=== PATIENT | female | born 1985 | race Caucasian/White ===

== ENCOUNTER 2018-07-10 19:28 | Emergency (ER) | payer OTHER ==
[2018-07-10 19:42] VITALS: TEMP 97.9; BMI 22.4
--- NOTE | 2018-07-10 19:45 | PDOC ---
History of Present Illness - General Chief Complaint: Chest Pain Stated Complaint: CHEST PAIN Time Seen by Provider: 07/10/18 19:34 - History of Present Illness Initial Comments: 32 year old female with PMH of depression, PTSD, and recent social stressors presenting with chest pain, paresthesias, and sob for the past 2 days. States that she woke up yesterday without issue and later in the morning noted central chest pain/ tightness that is worse with breathing and causes difficulty with deep inspiration and exertion. She went to [facility] yesterday and they performed a cxr, troponin, and d-dimer that were all WNL. Patient presenting to our ED because her symptoms have not improved, she's developed paresthesias in the setting of increased respiratory rate, and she would like to determine the source of her pain. Denies any fevers, chills, nausea, vomiting , diarrhea, constipation, headache, visual symptoms. She does take oral OCPS but denies history of blood clots, autoimmune/ connective tissue syndromes, or recent travel/ immobility. 07/10/18 21:29 09/ Past History - Past Medical History Allergies/Adverse Reactions: Allergies Allergy/AdvReac Type Severity Reaction Status Date / Time No Known Allergies Allergy Unverified 07/10/18 20:12 Home Medications: Ambulatory Orders Duloxetine HCl [Cymbalta] 60 mg PO DAILY 07/10/18 Gabapentin Enacarbil [Horizant] 600 mg PO HS 07/10/18 Lisdexamfetamine Dimesylate [Vyvanse] 30 mg PO DAILY 07/10/18 Norgestrel-Ethinyl Estradiol [Ogestrel] 1 each PO DAILY 07/10/18 Pregabalin [Lyrica -] 200 mg PO HS 07/10/18 Sumatriptan Succinate [Imitrex] 25 mg PO PRN PRN 07/10/18 - Suicide/Smoking/Psychosocial Hx Smoking History: Never smoked Have you smoked in the past 12 months: No Information on smoking cessation initiated: No Hx Alcohol Use: No Drug/Substance Use Hx: No Review of Systems - Review of Systems Constitutional: No: Chills, Diaphoresis, Fever, Loss of Appetite HEENTM: No: Eye Pain, Blurred Vision, Tearing, Nose Congestion Respiratory: Yes: Shortness of Breath, SOB with Exertion. No: Cough, Wheezing, Productive cough Cardiac (ROS): Yes: Chest Pain. No: Irregular Heart Rate, Lightheadedness, Palpitations, Syncope ABD/GI: No: Nausea, Vomiting : No: Dysuria, Discharge, Frequency Musculoskeletal: No: Back Pain, Joint Pain, Joint Swelling, Joint Stiffness Neurological: Yes: Numbness, Tingling. No: Headache, Paresthesia, Seizure, Weakness, Ataxia, Dizziness Psychiatric: Yes: Depression, Frequent Crying, Stressors. No: Anxiety Endocrine: No: Increased Hunger, Increased Thirst Hematologic/Lymphatic: No: Anemia, Blood Clots, Easy Bleeding *Physical Exam - Vital Signs Last Vital Signs Temp Pulse Resp BP Pulse Ox 97.9 F 99 H 22 H 137/100 100 07/10/18 19:36 07/10/18 19:36 07/10/18 19:36 07/10/18 19:36 07/10/18 19:36 - Physical Exam General Appearance: Yes: Nourished, Appropriately Dressed, Apparent Distress, Mild Distress HEENT: positive: EOMI, NAHID, Normal ENT Inspection, Normal Voice Neck: positive: Trachea midline, Normal Thyroid, Supple. negative: Tender, Rigid Respiratory/Chest: positive: Chest Tender (TTP over sternum), Lungs Clear, Normal Breath Sounds. negative: Respiratory Distress, Accessory Muscle Use Cardiovascular: positive: Regular Rhythm, Regular Rate Gastrointestinal/Abdominal: positive: Normal Bowel Sounds, Flat, Soft. negative : Tender Rectal Exam: positive: deferred Lymphatic: negative: Adenopathy, Tenderness Musculoskeletal: positive: Normal Inspection. negative: Decreased Range of Motion Extremity: positive: Normal Capillary Refill, Normal Inspection, Normal Range of Motion. negative: Tender, Cyanosis, Pedal Edema, Swelling, Calf Tenderness, Erythema Integumentary: positive: Normal Color, Dry, Warm Neurologic: positive: slipper maker II-XII NML intact, Fully Oriented, Alert, Normal Response, Motor Strength 5/5. negative: Normal Mood/Affect (tearful) ED Treatment Course - LABORATORY CBC & Chemistry Diagram: 07/10/18 20:26 07/10/18 20:26 Medical Decision Making - Medical Decision Making 32 year old female with PMH of depression currently experiencing interrelationship stresses presenting with chest tightness and SOB for the past two days. All workup at [facility] and here are negative including d-dimer and troponin / ekg x 2. EKG here demonstrates rate 88, MD interval 120, QRS 88, QTc 442, no signs of QT prolongation, brugada, WPW, or ST changes. Pain improved after Toradol 15 IV and Ativan 0.4 IV. Will DC with 2 Xanax and psychiatrist follow up instructions and return precautions. 07/10/18 21:42 *DC/Admit/Observation/Transfer Diagnosis at time of Disposition: Shortness of breath Chest pain Qualifiers: Chest pain type: unspecified Qualified Code(s): R07.9 - Chest pain, unspecified - Discharge Dispostion Disposition: HOME Condition at time of disposition: Improved Decision to Admit order: No - Referrals Referrals: [facility] – [place], [place] [facility] [place] [Provider Group] - Patient Instructions Printed Discharge Instructions: DI for Atypical Chest Pain, DI for Shortness of Breath Additional Instructions: We aren't certain for the cause of your chest pain. However, we have gotten results that indicate it is improbable to be anything related to your hear ( heart attack), large blood vessel (aortic dissection), or lungs (pulmonary embolism/ blood clot in your lung). You can take Tylenol and ibuprofen as discussed at home. Please use the Xanax as needed once a day if you begin to feel anxious or have trouble controlling your breathing rate. Please return top the Ed if you have worsening problems breasting, worsening pain, or worsening shortness of breath despite using medication. - Post Discharge Activity
--- NOTE | 2018-07-10 20:08 | PDOC ---
Attending Attestation - HPI HPI: 07/10/18 21:47 The patient is a 32 year old female, with a significant PMH of depression, PTSD , who presents to the emergency department with 2 days of chest pain and shortness of breath. The patient states she experienced the chest pain upon waking up, described as a central tightness, non radiating, worsened with breathing, with no alleviating factors. The patient states she was evaluated yesterday at [facility] and had a CXR, troponin and d-dimer which were negative. The patient states she decided to come to the ED tonight for evaluation as her symptoms have not improved. The patient denies headache and dizziness. Denies fever, chills, nausea, vomit, diarrhea and constipation. Denies dysuria, frequency, urgency and hematuria. Allergies: NKA - Physicial Exam PE: 07/10/18 21:55 Vitals: Triage vital signs reviewed General Appearance: No acute distress, well nourished, well developed Neck: Supple; No nuchal rigidity Chest Wall: +Tender to palpation over sternum. Cardiac: Regular rate and rhythm, no murmurs, no rubs, no gallops Lungs: Clear to auscultation bilateral, good air movement bilaterally Abdomen: Soft, nondistended, normal bowel sounds, nontender to palpation Rectal: Exam deferred Extremities: Full range of motion to all extremities, no cyanosis, clubbing, or edema Skin: Warm and dry, no rashes or lesions, no rash, no petechiae Neuro: AOX3; Cranial Nerves 2-12 grossly intact, Strength intact to all extremities, Sensation intact to all extremities Psych: Normal mood, normal affect - Medical Decision Making 07/10/18 21:48 32 year old female with history of depression, PTSD presents to the emergency department with 2 days of chest pain and shortness of breath. Plan: EKG, Meds, chest x-ray. <Dale Onofre - Last Filed: 07/10/18 22:12> - Resident Resident Name: Sonu Collado - ED Attending Attestation I have performed the following: I have examined & evaluated the patient, The case was reviewed & discussed with the resident, I agree w/resident's findings & plan, Exceptions are as noted - Medical Decision Making EKG demonstrated sinus rhythm no ST elevations or T-wave inversions Patient had blood work done at [facility] yesterday which demonstrated normal laboratory analysis including a negative d-dimer negative troponin History and examination at this time is most consistent with stress type reaction. Patient has bilateral hand leg and perioral tingling as well as chest discomfort shortness of breath. My suspicion for ACS, PE dissection and other acute life-threatening cardiopulmonary etiology is very low at this time We will recheck EKG and blood work I offered patient a small dose of Ativan to help with anxiolysis while we await her blood work Reevaluation blood work unremarkable patient feels much better symptoms have almost completely resolved with half milligram of Ativan On further history patient has had several problems in her current relationship and this may be contributing to symptomatology today she is stable for outpatient follow-up will discharge with 2 tabs of Xanax to help her until she can see her primary care provider on Thursday Findings, need for follow-up and strict return instructions discussed with patient. <Tristin Tripathi - Last Filed: 07/11/18 02:34> Attestations - Attestations 07/10/18 21:49 Documentation prepared by Dale Onofre, acting as medical office professional instructor for Tristin Tripathi MD. <Dale Onofre - Last Filed: 07/10/18 22:12>
[2018-07-10] MEDS ORDERED: LORazepam 2 MG/ML SDV VIAL ONE (20:35)
[2018-07-10 20:39] LABS: BASO % 1.1 % (0-2.0); EOS % 1.2 % (0-4.5); HEMATOCRIT 41.9 % (32.4-45.2); HEMOGLOBIN 14.7 GM/dL (10.7-15.3); LYMPH % 48.8 % (8-40); MCH 34.2 pg (25.7-33.7); MCHC 35.1 g/dl (32.0-36.0); MEAN CELL VOLUME 97.6 fl (80-96); MEAN PLT VOLUME 8.1 fl (7.5-11.1); MONO % 6.7 % (3.8-10.2); NEUT % 42.2 % (42.8-82.8); PLATELET COUNT 402 K/MM3 (134-434); RBC 4.29 M/mm3 (3.60-5.2); RDW 12.4 % (11.6-15.6); WHITE BLOOD COUNT 6.7 K/mm3 (4.0-10.0)
[2018-07-10 21:15] LABS: ALK PHOS 53 U/L (45-117); ANION GAP 10 MMOL/L (8-16); BILIRUBIN,TOTAL 0.4 mg/dL (0.2-1); BLOOD UREA NITROGEN 9 mg/dL (7-18); CALCIUM 9.8 mg/dL (8.5-10.1); CHLORIDE 106 mmol/L (98-107); CO2 24 mmol/L (21-32); CREATININE 0.7 mg/dL (0.55-1.3); GLUCOSE,RANDOM 108 mg/dL (74-106); POTASSIUM 3.3 mmol/L (3.5-5.1); SGOT/AST 15 U/L (15-37); SGPT/ALT 23 U/L (13-61); SODIUM 140 mmol/L (136-145); TOT PROT 7.2 g/dl (6.4-8.2)
[2018-07-10] MEDS ORDERED: KETOROLAC TROMETHAMINE 15 MG/ML VIAL IVPUSH ONE (22:00)
[2018-07-10] MEDS ORDERED: KETOROLAC TROMETHAMINE 15 MG/ML VIAL ONE (22:03)
[2018-07-10 22:13] VITALS: BP 128/79; PULSE 82
--- NOTE | 2018-07-11 17:06 | EKG ---
Test Reason : Blood Pressure : / mmHG Vent. Rate : 088 BPM Atrial Rate : 088 BPM P-R Int : 120 ms QRS Dur : 088 ms QT Int : 366 ms P-R-T Axes : 068 078 052 degrees QTc Int : 442 ms NORMAL SINUS RHYTHM NORMAL ECG NO PREVIOUS ECGS AVAILABLE Confirmed by MD Trey, Burt ([id number]) on 07/11/2018 5:06:31 PM Referred By: Confirmed By:Burt Yang MD
== END 2018-07-10 22:14 | disposition home or self-care (01) ==
LOC: JER 19:28
PROC: 3E033NZ Introduction of Analgesics, Hypnotics, Sedatives into Peripheral Vein, Percutaneous Approach (ICD-10-PCS; principal; 2018-07-10)
PROC: 3E0333Z Introduction of Anti-inflammatory into Peripheral Vein, Percutaneous Approach (ICD-10-PCS; 2018-07-10)
DX: R06.02 Shortness of breath (principal); R07.89 Other chest pain; F32.9 Major depressive disorder, single episode, unspecified; F43.10 Post-traumatic stress disorder, unspecified; Z73.3 Stress, not elsewhere classified
CPT/HCPCS: 36415; 71045-TC-FY; 80053; 84484; 84702; 85025; 93005; 93010; 99284-25